=== PATIENT | female | born 1950 ===

== ENCOUNTER → 2022-07-31 09:26 | Outpatient (BNVA) | payer MEDICARE, SELFPAY | PROVIDERS: PCP Family Medicine; Visit Provider Internal Medicine | DX: M25.561 Pain in right knee (principal); M25.562 Pain in left knee | CPT/HCPCS: 99202 ==

== ENCOUNTER 2022-11-15 05:59 | Outpatient (REF) | payer MEDICARE, SELFPAY | END 2022-11-15 06:00 | disposition home or self-care (01) | LOC: CF 05:59 | PROVIDERS: Visit Provider Internal Medicine | DX: M25.561 Pain in right knee (principal); M25.562 Pain in left knee | CPT/HCPCS: 64447; J2795; Q9965; Q9967 ==

== ENCOUNTER → 2022-11-17 10:15 | Outpatient (BNVA) | payer MEDICARE, SELFPAY | PROVIDERS: PCP Family Medicine; Visit Provider Internal Medicine | DX: M54.16 Radiculopathy, lumbar region (principal) | CPT/HCPCS: 99212 ==

== ENCOUNTER 2022-12-07 09:34 | Outpatient (REF) | payer MEDICARE, SELFPAY ==
--- NOTE | ~2022-12-07 | MR_ITS ---
EXAMINATION: MR LUMBAR SPINE WITHOUT CONTRAST CLINICAL INFORMATION: Radiculopathy. Left lower extremity pain. COMPARISON: No relevant prior imaging. TECHNIQUE: MRI of the lumbar spine was obtained using routine sequences without contrast. FINDINGS: Alignment is normal. There is a chronic Schmorl's node involving the upper L3 endplate. Vertebral heights are otherwise preserved. There are mixed predominantly type II and type III degenerative endplate changes at multiple levels. There is loss of intervertebral disc height and T2 signal intensity at multiple levels related to disc degeneration. The tip of the conus medullaris is located at L1-L2. No mass effect on the conus. Visualized distal cord signal intensity is normal. At L1-L2 the annular contour is normal. No canal stenosis. No mass effect on the traversing or foraminal nerve roots. At L2-L3 there is a bulging disc. No canal stenosis. No mass effect on the traversing or foraminal nerve roots. At L3-L4 there is a bulging disc. Bilateral facet degenerative change. No canal stenosis. No mass effect on the traversing or foraminal nerve roots. At L4-L5 there is a bulging disc. Bilateral facet degenerative change. No canal stenosis. No mass effect on the traversing or foraminal nerve roots. At L5-S1 is a bulging disc. Bilateral facet degenerative change. No canal stenosis. No mass effect on the traversing or foraminal nerve roots. Limited visualization of the retroperitoneal anatomy reveals multiple well marginated benign-appearing cystic lesions within both kidneys. Psoas and paraspinal muscle groups are symmetric. MR/MR lumbar spine wo con IMPRESSION: There is multilevel degenerative spondylosis of the lumbar spine. No canal stenosis. No mass effect on the traversing or foraminal nerve roots.
== END 2022-12-07 09:35 | disposition home or self-care (01) ==
LOC: HO.MRI 09:34
PROVIDERS: PCP Family Medicine; Visit Provider Internal Medicine
DX: M54.16 Radiculopathy, lumbar region (principal)
CPT/HCPCS: 72148

== ENCOUNTER 2022-12-20 13:30 | Day surgery (SDC) | payer MEDICARE, SELFPAY ==
[2022-12-20 14:07] VITALS: BMI 21.9
[2022-12-20 17:16] VITALS: BP 126/69; PULSE 62; RESP 18; TEMP 36.3; O2SAT 97
--- NOTE | 2022-12-28 10:58 | MHC.SHP ---
Pre-Procedural Eval Section A Date of Service: 12/20/22 The patient is an INPATIENT: No Changes since office visit: Yes Patient answered all questions The History & Physical has been completed within 30 days and I have reviewed it.: No Section B Chief Complaint: Left knee pain Relevant Family History (Specify if Yes): No Relevant Social History: None Present Medications: see Short Stay Collaborative assessment Medical History: No relevant PMH History of Previous Operations: No relevant previous surgery Allergies: Allergies Allergy/AdvReac Type Severity Reaction Status Date / Time No Known Allergies Allergy Verified 12/25/22 08:11 Review of Systems Sugical H&P ROS: Negative: Constitution, Cardiovascular and Respiratory Exam Surgical H&P Exam: Normal: HEENT, Normal: Heart and Normal: Lungs Plan Diagnosis/Plan: Unchanged I have reviewed the history and physical and performed a pertinent physical examination on my patient. No changes have occurred unless specified. Time Spent With Patient Time: Total time managing care of this patient today ____ minutes.
--- NOTE | 2022-12-28 10:59 | P.BOP_ITS ---
Brief Operative Note Date of Service: 12/20/22 Pre-op diagnosis: Chronic left knee pain Post-op diagnosis: same Procedure: Temporary left saphenous nerve stimulator placement Implants: Sprint PNS system Surgeon: Kostas Tan MD Anesthesia: local Was an Radiologic Technologist Chief used for this Procedure?: No Estimated blood loss (mL): 2 Pathology: none sent Condition: stable Disposition: same day
--- NOTE | 2022-12-28 11:01 | P.OP_ITS ---
Operative Note Operative Note Date of Service: 12/20/22 Narrative: Peripheral Nerve Stimulation Temporary Lead Placement, Ultrasound-Guided, Saphenous Nerve, Left ? After the risks, benefits and alternatives were discussed with the patient and informed consentwas obtained, patient was placed in the supine position and padded to foster comfort. Appropriate skin and bony landmarks were identified, and pertinent vascular structures were located. The skin overlying the needle entry site was prepped and draped in sterile fashion. Ultrasound was used to identify the femoral artery, the femoral vein and the saphenous nerve. After identifying and marking the intended target along the course of the saphenous nerve, the skin around the planned entry point and the subcutaneous tissues were injected with local anesthetic. An introducer needle and stimulating probe were assembled, inserted and advanced along the intended course of the saphenous; nerve, taking care to maintain the proper depth of insertion as the introducer was advanced under ultrasound guidance. The introducer needle was delivered to a location in proximity to the nerve taking care not to puncture the femoral artery or the vein. Multiple stimulation parameters were used to deliver stimulation to the saphenous nerve in concert with stimulating at multiple positions around the nerve. Nerve target acquisition was confirmed noting generation of sensory and mild motor effects (paresthesia, muscle tension, etc) in the medial knee, leg and ankle; corresponding to the distribution of the saphenous nerve. Various electrical parameter combinations were tested, and the lead location was adjusted (physica lly relocated under ultrasound guidance) until the patient indicated medial knee paresthesia and tension overlapping the distribution of the patient?s typical region of pain. The stimulating probe was removed from the introducer and a percutaneous lead was guided through the needle and delivered to a location in similar proximity to the nerve. Final location was verified with electrical stimulation and documented. The introducer needle was removed, and the exposed end of the percutaneous lead was attached to an external stimulator unit. Various electrical parameter combinations were again tested until the patient indicated paresthesia and muscle tension overlapping the distribution of the patient?s typical region of pain. After confirming that lead impedance was in the normal range, the external unit was detached, the needle was removed, and the lead was anchored at the skin. The lead was threaded into the connector block and electrical continuity and desired patient response was confirmed. The connector block was attached to the external stimulator unit. The site was covered with a sterile occlusive dressing. A final ultrasound image was taken to document final placement. The patient was observed for stability of vital signs and comfort.
== END 2022-12-20 17:44 | disposition home or self-care (01) ==
PROVIDERS: PCP Family Medicine; Visit Provider Internal Medicine
PROC: (CPT 64555; principal; 2022-12-20 14:40)
DX: M25.562 Pain in left knee (principal); M22.2X2 Patellofemoral disorders, left knee; M79.605 Pain in left leg; M54.32 Sciatica, left side; Z96.643 Presence of artificial hip joint, bilateral; E78.5 Hyperlipidemia, unspecified; G47.00 Insomnia, unspecified; F33.8 Other recurrent depressive disorders; Z79.899 Other long term (current) drug therapy
CPT/HCPCS: 64555; C1778

== ENCOUNTER → 2022-12-25 08:05 | Outpatient (BNVA) | payer MEDICARE, SELFPAY | PROVIDERS: PCP Family Medicine; Visit Provider Internal Medicine | DX: M25.561 Pain in right knee (principal); M25.562 Pain in left knee; M54.16 Radiculopathy, lumbar region | CPT/HCPCS: 99212 ==

== ENCOUNTER → 2023-02-16 08:57 | Outpatient (BNVA) | payer MEDICARE, SELFPAY | PROVIDERS: PCP Family Medicine; Visit Provider Internal Medicine | DX: M25.561 Pain in right knee (principal); M25.562 Pain in left knee | CPT/HCPCS: 99212 ==

== ENCOUNTER 2023-04-06 08:43 | Outpatient (AMB) | payer MEDICARE, SELFPAY ==
--- NOTE | 2023-04-06 08:47 | MHC.OFFVIS ---
Intake Vital Signs 04/06/23 08:51 Height 5 ft 7 in Weight 146 lb BMI 22.9 BP 116/60 Blood Pressure Location Lt brachial Position Sitting Respiration 16 Pulse 70 Pulse Source Pulse Oximeter Pulse Oximetry (%) 97 Oxygen Delivery Method Room Air Intake Visit Reasons: Follow Up/Radiculopathy Allergies No Known Allergies Allergy (Verified 04/06/23 08:52) HPI Follow Up/Radiculopathy HPI Details 72-year-old female presenting today for a follow-up of knee pain, left > right. Her bilateral knees are bothersome. Her pain started to relapse on the left side after the completion of the last therapy. She initially rated her pain as a 7/10, but now rates it as a 4/10 in intensity. She states that some days are good and some are bad with her pain. Activity triggers her pain. She is currently taking tramadol 50 mg with good relief. She is also doubling up on her knee exercises at home. She had a temporary PNS on 12/28/22, and it was removed on 02/20. She states that she was diagnosed with patellofemoral syndrome and chondromalacia. Per orthopedics, the patient is not a good candidate for TKR. Past Procedures: 12/28/22: Peripheral Nerve Stimulation Temporary Lead Placement, Ultrasound-Guided, Saphenous Nerve, Left: 50% relief for about 2-3 months. 12/20/22: Saphenous nerve sprint (LEFT)- Unsure of relief so far. 11/15/22: Left Diagnostic SNB at Adductor Canal ? 80% relief. [facility] Medical History (Updated 11/17/22 @ 12:03 by Kostas Tan MD) Bilateral knee pain Glaucoma Hand joint pain Hyperlipidemia Insomnia Major depression, melancholic type Patellofemoral stress syndrome Primary malignant neoplasm of female breast Surgical History (Updated 07/31/22 @ 09:42 by Shon Jones) History of total replacement of both hip joints Review of Systems Const All systems reviewed & are unremarkable except as noted in HPI and below Physical Exam Vital Signs: Last Vital Signs Pulse 70 04/06/23 08:51 Resp 16 04/06/23 08:51 BP 116/60 04/06/23 08:51 Pulse Ox 97 04/06/23 08:51 Oxygen Delivery Method Room Air 04/06/23 08:51 BMI result Body Mass Index 22.9 General: Appears afebrile. Alert and oriented. Mood and affect appropriate. Follows and participates in conversation appropriately. Respiratory effort is unlabored. Able to transition from sit to stand unassisted. Ambulates with bilaterally normal heel strike and toe off. Results Reviewed Results Reviewed: 12/07/22: MR LUMBAR SPINE WITHOUT CONTRAST FINDINGS: Alignment is normal. There is a chronic Schmorl's node involving the upper L3 endplate. Vertebral heights are otherwise preserved. There are mixed predominantly type II and type III degenerative endplate changes at multiple levels. There is loss of intervertebral disc height and T2 signal intensity at multiple levels related to disc degeneration. The tip of the conus medullaris is located at L1-L2. No mass effect on the conus. Visualized distal cord signal intensity is normal. At L1-L2 the annular contour is normal. No canal stenosis. No mass effect on the traversing or foraminal nerve roots. At L2-L3 there is a bulging disc. No canal stenosis. No mass effect on the traversing or foraminal nerve roots. At L3-L4 there is a bulging disc. Bilateral facet degenerative change. No canal stenosis. No mass effect on the traversing or foraminal nerve roots. At L4-L5 there is a bulging disc. Bilateral facet degenerative change. No canal stenosis. No mass effect on the traversing or foraminal nerve roots. At L5-S1 is a bulging disc. Bilateral facet degenerative change. No canal stenosis. No mass effect on the traversing or foraminal nerve roots. Limited visualization of the retroperitoneal anatomy reveals multiple well marginated benign-appearing cystic lesions within both kidneys. Psoas and paraspinal muscle groups are symmetric. Assessment & Plan Assessment & Plan (1) Bilateral knee pain: Code(s): M25.561 - Pain in right knee; M25.562 - Pain in left knee Plan 1. Discussed permanent nerve stimulator vs RFA vs PRP vs BMAC as possible treatment options at this point in time. Provided patient with a contact information of Dr. Vega in [facility] for PRP/bone marrow aspirate procedure. 2. Ordered a knee MRI scan for the patient to further evaluate her left knee pain. 3. The patient will return to the clinic when she is ready to move forward with the permanent PNS in the future. Scribed for Dr. Tan by Jordan Bateman, medical claims representative, on 04/06/2023. I, Dr. Tan, have personally reviewed and agree with the information entered by the scribe. Orders: Orders MR knee LT wo con 04/06/23 M25.561 - Pain in right knee, M25.562 - Pain in left knee Coding Level of Care Code Est Pt Level 4 (13041) Diagnoses Bilateral knee pain M25.561; M25.562
[2023-04-06 08:51] VITALS: BP 116/60; PULSE 70; RESP 16; O2SAT 97; BMI 22.9
== END 2023-04-06 09:19 | disposition home or self-care (01) ==
PROVIDERS: PCP Family Medicine; Visit Provider Internal Medicine
DX: M25.561 Pain in right knee (principal); M25.562 Pain in left knee
CPT/HCPCS: 99214

== ENCOUNTER → 2023-04-06 08:43 | Outpatient (BNVA) | payer MEDICARE, SELFPAY | PROVIDERS: PCP Family Medicine; Visit Provider Internal Medicine | DX: M25.561 Pain in right knee (principal); M25.562 Pain in left knee | CPT/HCPCS: 99212 ==

== ENCOUNTER → 2023-06-18 12:28 | Day surgery (SDC) | payer MEDICARE, SELFPAY ==
[2023-06-18 12:40] VITALS: BP 108/82; PULSE 73; RESP 20; TEMP 36.6; O2SAT 98; BMI 22.2
--- NOTE | 2023-06-18 13:42 | P.CONAN_ITS ---
HPI - Anesthesia Eval Consult details Narrative: 73 F for EGD PMFSH Active Problems Active Problems: All Active Problems (Updated 11/17/22 @ 12:03 by Kostas Tan MD) Lumbar radiculitis (Acute) Bilateral knee pain (Acute) Past Medical History Medical History (Updated 11/17/22 @ 12:03 by Kostas Tan MD) Bilateral knee pain Patellofemoral stress syndrome Hand joint pain Glaucoma Insomnia Major depression, melancholic type Hyperlipidemia Primary malignant neoplasm of female breast Functional capacity: independent ambulation Family History Family history of problems with anesthesia: No Surgical History Surgical History (Updated 07/31/22 @ 09:42 by Shon Jones) History of total replacement of both hip joints History of Problems with Anesthesia: No Social History Social History Patient Tobacco Use Status: Former Tobacco user Are you DNR?: No Advance Directives: No Advance Directives Information Provided: Yes Nutrition Risks: No Nutritional Risk Meds Allergies Allergy/AdvReac Type Severity Reaction Status Date / Time No Known Allergies Allergy Verified 04/06/23 08:52 Home Medications Medication Instructions Recorded Confirmed Last Taken Type atorvastatin 20 mg tablet 20 mg PO DAILY 07/31/22 02/16/23 Unknown History dorzolamide 22.3 mg-timolol 6.8 1 drp ophthalmic (eye) BID 07/31/22 02/16/23 Unknown History mg/mL eye drops latanoprost 0.005 % eye drops 1 drp ophthalmic (eye) DAILY 07/31/22 02/16/23 Unknown History tramadol 50 mg tablet 50 mg PO ONCE 07/31/22 02/16/23 Unknown History Exam Exam Date and Time: June 18, 2023 1342 Height,Weight and Vital Signs: Height 5 ft 7 in Weight 64.41 kg Last Vital Signs Temp 98 F 06/18/23 12:40 Pulse 73 06/18/23 12:40 Resp 20 06/18/23 12:40 BP 108/82 06/18/23 12:40 Pulse Ox 98 06/18/23 12:40 O2 Del Method Room Air 06/18/23 12:40 Airway Mallampati Class: III Neck ROM: Full Loose/Missing/Broken Teeth: Yes Assessment and Plan Assessment Anesthesia Assessment: Anesthesia Plan Discussed and Chart Reviewed Final Anesthetic Review Family History of Problems with Anesthesia: No History of Problems with Anesthesia: No NPO: Yes ASA Class: II Final Preanesthetic Review: Meds/Allgs Chart Reviewed and Anes Risks/Benef Rev iewed Patient Risk: Intermediate Procedure Risk: Intermediate Anesthetic Plan Anesthetic Plan: MAC: and Agree w/ Assess. and Plan Disposition: Standard PACU
[2023-06-18 15:17] VITALS: BP 96/51; PULSE 59; RESP 16; TEMP 36.4; O2SAT 96
--- NOTE | 2023-06-18 15:27 | P.BOP_ITS ---
Brief Operative Note Date of Service: 06/18/23 Pre-op diagnosis: GERD Post-op diagnosis: other (Small hiatal hernia, GERD) Procedure: EGD with biopsies Surgeon: Abiel Farley Anesthesia: MAC Was an Supervisor In Charge used for this Procedure?: No Estimated blood loss (mL): 2.0 Pathology: other (A. EG Junction at 38cm) Condition: stable Disposition: PACU
[2023-06-18 15:32] VITALS: BP 121/69; PULSE 59; RESP 16; O2SAT 99
[2023-06-18 15:47] VITALS: BP 121/64; PULSE 53; RESP 16; O2SAT 99
[2023-06-18 16:01] VITALS: BP 123/65; PULSE 56; RESP 16; TEMP 36.3; O2SAT 99
--- NOTE | 2023-06-19 00:30 | OP_ITS ---
DATE OF SERVICE: 06/18/2023 SURGEON: Abiel Farley MD INDICATIONS: The patient presents for evaluation of gastroesophageal reflux. Full consent has been obtained from her for this, including risks of bleeding and perforation. PREOPERATIVE DIAGNOSIS: POSTOPERATIVE DIAGNOSIS: PROCEDURE PERFORMED: Esophagogastroduodenoscopy with biopsies. ESTIMATED BLOOD LOSS: COMPLICATIONS: ANESTHESIA: Monitored anesthesia care. ASSISTANTS: SPECIMENS: PREOPERATIVE DIAGNOSES: Gastroesophageal reflux and heartburn. POSTOPERATIVE DIAGNOSES: Gastroesophageal reflux, heartburn, small hiatal hernia. DESCRIPTION OF PROCEDURE: The patient was placed in the left lateral decubitus position. The Olympus video gastroscope was passed in the posterior oropharynx and upper esophagus under direct vision. The scope was passed slowly to the distal esophagus. The gastroesophageal junction appeared at 38 cm. There was a very minimal irregularity but otherwise no sign of any esophagitis nor Nuñez's esophagus. The scope entered the stomach. There was a small hiatal hernia. The scope was advanced to the pylorus and the duodenum was cannulated to the descending portion. The duodenum including the bulb appeared normal without mass or ulceration. The scope was withdrawn back to the stomach. The gastric antrum and body appeared normal with good peristalsis. The scope was retroflexed visualizing the proximal stomach carefully which appeared normal, without any sign of mass or ulceration. The scope was straightened and withdrawn back to the esophagus. Biopsies were obtained at the EG junction at 38 cm. Proximal to this, the esophageal mucosa appeared normal. The scope was withdrawn from the patient. She tolerated the procedure well and was returned to the recovery area in stable condition. IMPRESSION: Small hiatal hernia and minimal changes of reflux. PLAN: The results of the biopsies will be checked. She reports that she is still having symptomatic heartburn and reflux. I shall give her a prescription to start a PPI on a daily and regular basis to see if that can give her relief. She has been using a H2 jennifer, but only on a p.r.n. basis. I do not think she would require any type of hiatal hernia surgery given the minimal findings on today's exam. She will be seen in followup in the office. MD LOY Figueroa/SWETA / [phone] [facility]
== END | disposition home or self-care (01) ==
PROVIDERS: PCP Family Medicine; Visit Provider Internal Medicine
PROC: 0DJ08ZZ Inspection of Upper Intestinal Tract, Via Natural or Artificial Opening Endoscopic (ICD-10-PCS; CPT 43235; principal; 2023-06-18 14:50)
DX: K21.9 Gastro-esophageal reflux disease without esophagitis (principal); K22.70 Barrett's esophagus without dysplasia; K44.9 Diaphragmatic hernia without obstruction or gangrene; E78.5 Hyperlipidemia, unspecified; Z79.899 Other long term (current) drug therapy; Z87.891 Personal history of nicotine dependence; Z86.010 Personal history of colon polyps
CPT/HCPCS: 43239; 88305

== ENCOUNTER 2023-07-11 07:57 | Outpatient (REF) | payer MEDICARE, SELFPAY ==
--- NOTE | ~2023-07-11 | US_ITS ---
EXAMINATION: US ABDOMEN COMPLETE CLINICAL INFORMATION: Abdominal pain. COMPARISON: None available. TECHNIQUE: Real-time imaging of the abdominal viscera. FINDINGS: PANCREAS: Normal. ABDOMINAL AORTA: Atherosclerosis of the abdominal aorta. INFERIOR VENA CAVA: Visualized portions are normal. LIVER: The liver is normal in size. The liver contour is normal. Parenchymal echogenicity is normal. Benign-appearing hepatic cysts measuring up to 1.1 cm. There is no intrahepatic biliary duct dilatation seen. GALLBLADDER: Normal. The gallbladder is physiologically distended without evidence of stones, sludge, polyps, wall thickening or pericholecystic fluid. COMMON BILE DUCT: Normal in caliber measuring 0.5 cm in diameter. RIGHT KIDNEY: Tiny 7 mm echogenic renal lesion without internal vascularity which may reflect a tiny angiomyolipoma. Subcentimeter benign-appearing renal cysts, no follow-up imaging recommended. No hydronephrosis or renal calculi. The kidney measures 10.7 cm in maximum dimension. LEFT KIDNEY: Benign-appearing renal cysts measuring up to 1.2 cm. No follow-up imaging is recommended. No hydronephrosis or renal calculi. The kidney measures 10.8 cm in maximum dimension. SPLEEN: Normal. The spleen measures 9.0 cm in maximum dimension. FREE FLUID: None. US/US abdomen complete IMPRESSION: 1. No acute findings to explain symptoms of abdominal pain. 2. Tiny 7 mm echogenic renal lesion without internal vascularity which may reflect a tiny angiomyolipoma. 3. Atherosclerosis of the abdominal aorta.
== END 2023-07-11 07:58 | disposition home or self-care (01) ==
LOC: HO.US 07:57
PROVIDERS: PCP Family Medicine; Visit Provider Internal Medicine
DX: R10.10 Upper abdominal pain, unspecified (principal)
CPT/HCPCS: 76700